=== PATIENT | male | born 1970 | race Caucasian/White ===

== ENCOUNTER 2018-05-06 06:37 | Emergency (ER) | payer OTHER ==
--- NOTE | 2018-05-06 08:08 | RAD REPORT ---
EXAM DESCRIPTION: CT - Head Brain Wo Cont - 05/06/2018 7:35 am CLINICAL HISTORY: Headache COMPARISON: None. TECHNIQUE: Computed axial tomography of the head was obtained. IV contrast was not requested. All CT scans are performed using dose optimization technique as appropriate and may include automated exposure control or mA/KV adjustment according to patient size. FINDINGS: An intracranial bleed is not seen . The ventricles are normal in caliber. No extra-axial fluid collection is noted. Fluid within the sinuses/ mastoids is not seen. IMPRESSION: No acute intracranial abnormality is seen. If patient's symptoms persist MRI of the bra in would be recommended.
[2018-05-06 08:16] LABS: Absolute Lymphocytes (CBC) 1.2 K/uL (0.7-4.9); Absolute Monocytes 0.4 K/uL (0.1-1.3); Absolute Neutrophil 3.9 K/uL (1.8-8.0); Basophils % 0.6 % (0-1.3); Eosinophils % 2.6 % (0-4.4); Hematocrit 43.3 % (39.6-49.0); Lymphocytes % 21.2 % (15.3-44.8); MCH 32.9 pg (27.0-35.0); MCV 96.6 fL (80-100); MPV 8.7 fL (7.6-11.3); Monocytes % 7.1 % (3.3-12.3); RBC Red Blood Cell Count 4.48 M/uL (4.33-5.43)
[2018-05-06 08:18] LABS: Protime INR 1.27
[2018-05-06 08:36] LABS: ALT/SGPT 62 U/L (12-78); AST/SGOT 122 U/L (15-37); Albumin 3.5 g/dL (3.4-5.0); Alkaline Phosphatase 170 U/L (45-117); BUN Blood Urea Nitrogen 10 mg/dL (7-18); Bicarbonate 26 mmol/L (21-32); Bilirubin Direct 0.5 mg/dL (0-0.2); Bilirubin Total 1.3 mg/dL (0.2-1.0); Glucose Level 132 mg/dL (74-106); NT PRO-BNP 70 pg/mL (<125); Potassium 3.7 mmol/L (3.5-5.1); Protein, Total 8.6 g/dL (6.4-8.2); Sodium Level 136 mmol/L (136-145); Troponin (Emerg Dept Use Only) < 0.02 ng/mL (0.0-0.045)
[2018-05-06 08:46] LABS: Blood Morphology Comment NOT SEEN (NOT SEEN); Platelet Estimate ADEQ
[2018-05-06] MEDS ORDERED: NA CHLORIDE 0.9% 1,000 ML ONE (09:02)
[2018-05-06] MEDS ORDERED: LISINOPRIL 20 MG TAB ONE (09:02)
--- NOTE | 2018-05-06 10:44 | ER ---
Nurse's Notes [facility] Name: Joel Rondon Age: 48 yrs Sex: Male : 1970 Arrival Date: 05/06/2018 Time: 06:46 Bed 16 Private MD: Diagnosis: Hypertensive heart disease Presentation: 05/06 07:08 Presenting complaint: Patient states: high BP at work yesterday 191/110, has not gone iw back down, hx of hypertension but off meds for 4 years, c/o headache, dizziness, feet tingling. Transition of care: patient was not received from another setting of care. Onset of symptoms was May 05, 2018. Risk Assessment: Do you want to hurt yourself or someone else? Patient reports no desire to harm self or others. Initial Sepsis Screen: Does the patient meet any 2 criteria? No. Patient's initial sepsis screen is negative. Does the patient have a suspected source of infection? No. Patient's initial sepsis screen is negative. Care prior to arrival: None. 07:08 Method Of Arrival: Ambulatory iw 07:08 Acuity: [place] 3 iw Historical: - Allergies: 07:11 Celebrex; iw - Home Meds: 07:11 None [Active]; iw - PMHx: 07:11 Hypertension; iw - PSHx: 07:11 left knee; shoulder; iw - Immunization history:: Adult Immunizations up to date. - Social history:: Smoking status: Patient/guardian denies using tobacco. - Ebola Screening: : Patient negative for fever greater than or equal to 101.5 degrees Fahrenheit, and additional compatible Ebola Virus Disease symptoms Patient denies exposure to infectious person Patient denies travel to an Ebola-affected area in the 21 days before illness onset No symptoms or risks identified at this time. Screenin:10 Abuse screen: Denies threats or abuse. Denies injuries from another. Nutritional jl7 screening: No deficits noted. Tuberculosis screening: No symptoms or risk factors identified. Fall Risk IV access (20 points). Total Morton Fall Scale indicates No Risk (0-24 pts). Assessment: 08:10 General: Appears in no apparent distress. uncomfortable, Behavior is calm, cooperative, jl7 appropriate for age. Pain: Complains of pain in headache. Neuro: Level of Consciousness is awake, alert, obeys commands, Oriented to person, place, time, situation. Cardiovascular: Heart tones present Patient's skin is warm and dry. Respiratory: Airway is patent Respiratory effort is even, unlabored, Respiratory pattern is regular, symmetrical. Derm: Skin is pink, warm \T\ dry. 09:01 Reassessment: Patient appears in no apparent distress at this time. No changes from jl7 previously documented assessment. Patient and/or family updated on plan of care and expected duration. Pain level reassessed. Patient is alert, oriented x 3, equal unlabored respirations, skin warm/dry/pink. 10:00 Reassessment: Patient appears in no apparent distress at this time. Patient and/or jl7 family updated on plan of care and expected duration. Pain level reassessed. Patient is alert, oriented x 3, equal unlabored respirations, skin warm/dry/pink. Vital Signs: 07:11 BP 174 / 120; Pulse 81; Resp 16; Temp 98.2; Pulse Ox 98% on R/A; Weight 89.81 kg; iw Height 5 ft. 5 in. (165.10 cm); Pain 6/10; 08:10 BP 162 / 106; Pulse 77; Resp 16 S; Pulse Ox 100% on R/A; Pain 0/10; jl7 09:01 BP 164 / 113; Pulse 84; Resp 16 S; Pulse Ox 98% on R/A; Pain 2/10; jl7 11:11 BP 160 / 107; Pulse 85; Resp 16 S; Pulse Ox 100% on R/A; Pain 0/10; jl7 07:11 Body Mass Index 32.95 (89.81 kg, 165.10 cm) iw ED Course: 06:46 Patient arrived in ED. ds1 07:10 Triage completed. iw 07:11 Arm band placed on. iw 07:13 Gorge Angela PA is PHCP. cp 07:13 Anam Reyes MD is Attending Physician. cp 07:16 Gorge Ritter MD is Attending Physician. cp 07:34 CT completed. Patient tolerated procedure well. Patient moved to CT via wheelchair. jg6 Patient moved back from CT. 07:36 CT Head Brain wo Cont In Process Unspecified. EDMS 07:48 XRAY Chest (1 view) In Process Unspecified. EDMS 08:05 EKG done, by senior engineering tech. reviewed by Gorge WALLS. at1 08:10 Gabriella Levi, RN is Primary Nurse. jl7 08:10 Patient has correct armband on for positive identification. Bed in low position. Call jl7 light in reach. Side rails up X 1. hall monitor on. Pulse ox on. NIBP on. Warm blanket given. 08:10 Initial lab(s) drawn, by me, sent to lab. Inserted saline lock: 20 gauge in left jl7 antecubital area, using aseptic technique. Blood collected. 09:21 US Abdomen Limited In Process Unspecified. EDMS 09:47 Ultrasound completed. Patient tolerated well. Note: US DONE BEDSIDE IN ER. lc3 11:11 No provider procedures requiring assistance completed. IV discontinued, intact, jl7 bleeding controlled, No redness/swelling at site. Pressure dressing applied. Administered Medications: 09:00 Drug: NS 0.9% 1000 ml Route: IV; Rate: 1 bolus; Site: left antecubital; jl7 10:00 Follow up: IV Status: Completed infusion jl7 09:00 Drug: Lisinopril 20 mg Route: PO; jl7 11:11 Follow up: Response: No adverse reaction jl7 Outcome: 10:43 Discharge ordered by MD. cp 11:11 Discharged to home ambulatory. jl7 11:11 Condition: stable 11:11 Discharge instructions given to patient, family, Instructed on discharge instructions, follow up and referral plans. medication usage, Demonstrated understanding of instructions, follow-up care, medications, Prescriptions given X 1. 11:13 Patient left the ED. jl7 Signatures: Dispatcher [employer] EDGA Isa Kennedy ds1 Eleonora Mina, RN RN Sweta Hernandez, food service attendant EKG Tat1 Gorge Angela PA PA cp Baudilio Marie [facility] Gabriella Levi, RN RN juan7 Hortensia Figueroa j6
--- NOTE | 2018-05-06 10:45 | EDPHYS ---
Physician Documentation [facility] Name: Joel Rondon Age: 48 yrs Sex: Male : 1970 Arrival Date: 05/06/2018 Time: 06:46 Bed 16 Private MD: ED Physician Gorge Ritter HPI: 05/06 07:30 This 48 yrs old Male presents to ER via Ambulatory with complaints of High cp Blood Pressure. 07:30 The patient has elevated blood pressure and discovered this at work yesterday. cp 07:30 Associated signs and symptoms: Pertinent positives: dizziness, headache, tingling in cp feet, Pertinent negatives: chest pain, dyspnea, visual changes, vomiting. Severity of symptoms: At its worst the blood pressure was 191 mm Hg. Patient reports PMHX of hypertension and stopping medications with f/u four years ago. Historical: - Allergies: 07:11 Celebrex; iw - Home Meds: 07:11 None [Active]; iw - PMHx: 07:11 Hypertension; iw - PSHx: 07:11 left knee; shoulder; iw - Immunization history:: Adult Immunizations up to date. - Social history:: Smoking status: Patient/guardian denies using tobacco. - Ebola Screening: : Patient negative for fever greater than or equal to 101.5 degrees Fahrenheit, and additional compatible Ebola Virus Disease symptoms Patient denies exposure to infectious person Patient denies travel to an Ebola-affected area in the 21 days before illness onset No symptoms or risks identified at this time. ROS: 07:35 Constitutional: Negative for body aches, chills, fever, poor PO intake. cp 07:35 Eyes: Negative for injury, pain, redness, and discharge. cp 07:35 ENT: Negative for drainage from ear(s), ear pain, sore throat, difficulty swallowing, difficulty handling secretions. 07:35 Cardiovascular: Negative for chest pain, edema, palpitations. 07:35 Respiratory: Negative for cough, shortness of breath, wheezing. 07:35 Abdomen/GI: Negative for abdominal pain, nausea, vomiting, and diarrhea, black/tarry stool, rectal bleeding. 07:35 Back: Negative for pain at rest, pain with movement, radiated pain. 07:35 Skin: Negative for cellulitis, rash. 07:35 Neuro: Positive for headache, Negative for altered mental status, dizziness, numbness, tingling, weakness. 07:35 All other systems are negative. Exam: 07:43 Constitutional: The patient appears in no acute distress, alert, awake, cp non-diaphoretic, well developed, well nourished. 07:43 Head/Face: Normocephalic, atraumatic. Eyes: Pupils equal round and reactive to light, cp extra-ocular motions intact. Lids and lashes normal. Conjunctiva and sclera are non-icteric and not injected. Cornea within normal limits. Periorbital areas with no swelling, redness, or edema. ENT: Nares patent. No nasal discharge, no septal abnormalities noted. Tympanic membranes are normal and external auditory canals are clear. Oropharynx with no redness, swelling, or masses, exudates, or evidence of obstruction, uvula midline. Mucous membranes moist. Neck: Trachea midline, no thyromegaly or masses palpated, and no cervical lymphadenopathy. Supple, full range of motion without nuchal rigidity, or vertebral point tenderness. No Meningismus. Chest/axilla: Normal chest wall appearance and motion. Nontender with no deformity. No lesions are appreciated. 07:43 Cardiovascular: Rate: normal, Rhythm: regular, Pulses: Pulses are 2+ in right radial artery and left radial artery. Heart sounds: murmur, not appreciated, Edema: is not appreciated, JVD: is not appreciated. 07:43 Respiratory: the patient does not display signs of respiratory distress, Respirations: normal, no use of accessory muscles, no retractions, no splinting, no tachypnea, labored breathing, is not present, Breath sounds: are clear throughout, no decreased breath sounds, no stridor, no wheezing. 07:43 Abdomen/GI: Inspection: abdomen appears normal, Bowel sounds: active, all quadrants, Palpation: abdomen is soft and non-tender, in all quadrants. 07:43 Back: pain, is absent, ROM is normal. 07:43 Skin: cellulitis, is not appreciated, no rash present. 07:43 Neuro: Orientation: to person, place \T\ time. Mentation: is normal, Cerebellar function: is grossly normal, Motor: moves all fours, strength is normal, Sensation: is normal, Gait: is steady, at a normal pace, without difficulty. 08:05 ECG was reviewed by the Attending Physician. cp Vital Signs: 07:11 BP 174 / 120; Pulse 81; Resp 16; Temp 98.2; Pulse Ox 98% on R/A; Weight 89.81 kg; iw Height 5 ft. 5 in. (165.10 cm); Pain 6/10; 08:10 BP 162 / 106; Pulse 77; Resp 16 S; Pulse Ox 100% on R/A; Pain 0/10; jl7 09:01 BP 164 / 113; Pulse 84; Resp 16 S; Pulse Ox 98% on R/A; Pain 2/10; jl7 11:11 BP 160 / 107; Pulse 85; Resp 16 S; Pulse Ox 100% on R/A; Pain 0/10; jl7 07:11 Body Mass Index 32.95 (89.81 kg, 165.10 cm) iw MDM: 07:13 Patient medically screened. cp 07:30 Differential diagnosis: hypertensive crisis, Malignant HTN, CVA, intracerebral cp hemorrhage. 10:40 Data reviewed: vital signs, nurses notes, lab test result(s), EKG, radiologic studies, cp CT scan, ultrasound. 10:40 Counseling: I had a detailed discussion with the patient and/or guardian regarding: the cp historical points, exam findings, and any diagnostic results supporting the discharge/admit diagnosis, the presence of at least one elevated blood pressure reading (>120/80) during this emergency department visit, lab results, radiology results, the need for outpatient follow up, for definitive care, a family practitioner, to return to the emergency department if symptoms worsen or persist or if there are any questions or concerns that arise at home. Response to treatment: the patient's symptoms have mildly improved after treatment. ED course: VSS. Blood pressure improved. Discussed results of labs with abnormal LFTs and US. Patient instructed on need for reducing alcohol use and to f/u with family physician. 05/06 07:23 Order name: Basic Metabolic Panel; Complete Time: 08:43 cp 05/06 08:44 Interpretation: Normal except: GLUC 132; CA 8.4. cp 05/06 07:23 Order name: CBC with Diff; Complete Time: 09:27 cp 05/06 08:43 Interpretation: Normal except: PLT 85. cp 05/06 07:23 Order name: LFT's; Complete Time: 08:43 05/06 08:44 Interpretation: Normal except: AST 122; ALK 170; BILIT 1.3; BILID 0.5; TP 8.6; GLOB cp 5.1; A/G 0.7. 05/06 07:23 Order name: Magnesium; Complete Time: 08:43 05/06 07:23 Order name: NT PRO-BNP; Complete Time: 08:43 05/06 07:23 Order name: PT-INR; Complete Time: 08:43 05/06 07:23 Order name: Troponin (emerg Dept Use Only); Complete Time: 08:43 05/06 07:23 Order name: XRAY Chest (1 view) 05/06 07:23 Order name: EKG; Complete Time: 07:24 05/06 07:23 Order name: CT Head Brain wo Cont; Complete Time: 08:24 05/06 08:25 Interpretation: Report reviewed. 05/06 08:45 Order name: US Abdomen Limited 05/06 08:46 Order name: Manual Differential; Complete Time: 09:27 EDMS 05/06 07:23 Order name: Cardiac monitoring; Complete Time: 08:17 05/06 07:23 Order name: EKG - Nurse/Tech; Complete Time: 08:17 05/06 07:23 Order name: IV Saline Lock; Complete Time: 08:17 05/06 07:23 Order name: Labs collected and sent; Complete Time: 08:17 05/06 07:23 Order name: O2 Per Protocol; Complete Time: 08:17 05/06 07:23 Order name: O2 Sat Monitoring; Complete Time: 08:17 05/06 07:23 Order name: Accucheck Blood Glucose; Complete Time: 08:52 cp EC:05 Rate is 81 beats/min. Rhythm is regular. SD interval is normal. QRS interval is cp prolonged at 102 msec. QT interval is normal. Interpreted by me. Reviewed by me. Administered Medications: 09:00 Drug: NS 0.9% 1000 ml Route: IV; Rate: 1 bolus; Site: left antecubital; 10:00 Follow up: IV Status: Completed infusion 7 09:00 Drug: Lisinopril 20 mg Route: PO; 11:11 Follow up: Response: No adverse reaction Disposition: 16:57 Co-signature as Attending Physician, Gorge Ritter MD I agree with the assessment and tony plan of care. Disposition: 05/06/18 10:43 Discharged to Home. Impression: Hypertensive heart disease. - Condition is Stable. - Discharge Instructions: Hypertension, How to Take Your Blood Pressure, [id number], Managing Your Hypertension. - Prescriptions for Lisinopril 20 mg Oral Tablet - take 1 tablet by ORAL route once daily; 20 tablet. - Medication Reconciliation Form, Thank You Letter, Antibiotic Education, Prescription Opioid Use form. - Follow up: Private Physician; When: Today; Reason: Recheck today's complaints. - Problem is new. - Symptoms have improved. Signatures: Dispatcher [employer] EDGorge Coburn MD MD cha Williams, Irene, RN RN Gorge Patrick PA PA cp Leal, Jahala, RN RN jl7 Corrections: (The following items were deleted from the chart) 08:44 08:43 Normal except: GLUC 132. cp cp 11:13 10:43 05/06/2018 10:43 Discharged to Home. Impression: Hypertensive heart disease. jl7 Condition is Stable. Forms are Medication Reconciliation Form, Thank You Letter, Antibiotic Education, Prescription Opioid Use. Follow up: Private Physician; When: Today; Reason: Recheck today's complaints. Problem is new. Symptoms have improved. cp 05/07 08:33 05/05 07:42 Constitutional: The patient appears in no acute distress, alert, awake, cp non-diaphoretic, non-toxic, well developed, well nourished, cp 05/07 08:33 05/05 07:42 Head/Face: Normocephalic, atraumatic. Eyes: Pupils equal round and reactive cp to light, extra-ocular motions intact. Lids and lashes normal. Conjunctiva and sclera are non-icteric and not injected. Cornea within normal limits. Periorbital areas with no swelling, redness, or edema. ENT: Nares patent. No nasal discharge, no septal abnormalities noted. Tympanic membranes are normal and external auditory canals are clear. Oropharynx with no redness, swelling, or masses, exudates, or evidence of obstruction, uvula midline. Mucous membranes moist. Neck: Trachea midline, no thyromegaly or masses palpated, and no cervical lymphadenopathy. Supple, full range of motion without nuchal rigidity, or vertebral point tenderness. No Meningismus. Chest/axilla: Normal chest wall appearance and motion. Nontender with no deformity. No lesions are appreciated. Cardiovascular: Regular rate and rhythm with a normal S1 and S2. No gallops, murmurs, or rubs. Normal PMI, no JVD. No pulse deficits. Respiratory: Lungs have equal breath sounds bilaterally, clear to auscultation and percussion. No rales, rhonchi or wheezes noted. No increased work of breathing, no retractions or nasal flaring. Abdomen/GI: Soft, non-tender, with normal bowel sounds. No distension or tympany. No guarding or rebound. No evidence of tenderness throughout. Skin: Warm, dry with normal turgor. Normal color with no rashes, no lesions, and no evidence of cellulitis. Neuro: Awake and alert, GCS 15, oriented to person, place, time, and situation. Cranial nerves II-XII grossly intact. Motor strength 5/5 in all extremities. Sensory grossly intact. Cerebellar exam normal. Normal gait. cp 05/07 08:33 05/06 07:30 The patient has elevated blood pressure and discovered this at home, with a cp home device, cp
--- NOTE | 2018-05-06 11:46 | EKG ---
Test Date: 2018-05-06 Test Time: 07:54:38 [employer]: JAVY MEASUREMENT RESULTS: Intervals: Rate: 81 MS: 142 QRSD: 102 QT: 414 QTc: 480 [place]: P: 30 MS: 142 QRS: -13 T: -2 INTERPRETIVE STATEMENTS: Normal sinus rhythm Minimal voltage criteria for LVH, may be normal variant Prolonged QT Abnormal ECG No previous ECG available for comparison Electronically Signed On 05-06-18 11:44:40 [employer] OFFIC[employer] by Inocencio Uriarte
--- NOTE | 2018-05-06 13:12 | RAD REPORT ---
EXAM DESCRIPTION: RAD - Chest Single View - 05/06/2018 7:48 am CLINICAL HISTORY: Hypertension, headache, shortness of breath COMPARISON: None. TECHNIQUE: AP portable chest image was obtained 0731 hours . FINDINGS: Lung volumes are low. No focal lung parenchymal process. Heart and vasculature are normal. No measurable pleural effusion and no pneumothorax. No acute bony abnormality seen. No acute aortic findings suspected. IMPRESSION: No acute cardiopulmonary process.
--- NOTE | 2018-05-06 14:15 | RAD REPORT ---
EXAM DESCRIPTION: US - Abdomen Exam Limited - 05/06/2018 9:23 am CLINICAL HISTORY: Abdominal pain./elevated liver enzymes COMPARISON: None. FINDINGS: The liver has an increase in heterogeneous echotexture. It may have a nodular contour. A gallstone is not seen. Gallbladder wall is not thickened. Biliary tree is normal caliber. IMPRESSION: Unremarkable gallbladder ultrasound. Heterogeneous and increased hepatic echotexture consistent with parenchymal disease. CT scan or MRI w ith contrast is recommended for further evaluation
== END 2018-05-06 11:13 | disposition home or self-care (01) ==
LOC: ER 06:37
DX: I11.9 Hypertensive heart disease without heart failure (principal); Z88.8 Allergy status to other drugs, medicaments and biological substances
CPT/HCPCS: 36415; 70450; 71045; 76705; 80048; 80076; 83735; 83880; 84484; 85025; 85610; 93005; 96360; 99285; J7030

== ENCOUNTER 2020-11-04 01:51 | Emergency (ER) | payer BC, SELFPAY ==
[2020-11-04] MEDS ORDERED: EPINEPHrine 1 MG/10 ML SYR IV ONE (01:52)
[2020-11-04] MEDS ORDERED: NA CHLORIDE 0.9% 1,000 ML IV ONE (01:52)
[2020-11-04] MEDS ORDERED: Caclcium Chloride 10% INJ SYR IV ONE (01:52)
--- OUTSIDE RECORDS SUMMARY | 2020-11-04 01:55 | XMS REPORT | Continuity of Care Document ---
:1970 Author Organization [facility] t Address [address] [place] [address] Care Team Providers Name Role Phone Ignacio MINER Primary Care Physician Tereza ROB M Attending Clinician [facility] Attending Clinician Unavailable Mayo MINER G Attending Clinician Jose YANEZ Admitting Clinician Payers Payer Name Policy Type Policy Effective Date Expiration Date Sour ce Number BCBS OF [id number] 2020 [place] o f [place] 00:[place]:00 [facility] [id number] Branch [id number] 2019 [id number], [place] [id number] Problems Condition Condition Condition Status Onset Resolution Last Treating Co mments Source Name Details Category Date Date Treatment Clinician Date S/P S/P Disease Active Overview: Univer s choledocho choledocho 5-06 Added it y of choledocho choledocho 00:00: automatic [place] stomy with stomy with 00 ally from Medical stent done stent done request B ranch at time of at time of for liver liver surgery transplant transplant [id number] Fever in Fever in Disease Active Unive rs adult adult 4-22 ity of 00:00: [address] Branch Immunosupp Immunosupp Disease Active U nivers ressed ressed 4-15 ity of status status 00:00: [address] Branch 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 4-15 it y of on on 00:00: [place] [address] Medical Branch Essential Essential Disease Active Uni vers hypertensi hypertensi 4-10 it y of on on 00:00: Medical Branch Hyponatrem Hyponatrem Disease Active U ariellaers ia ia 4-10 ity of 00:00: Medical Branch 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 4-10 it y of 00:: [place] [facility] Coagulopat Coagulopat Disease Active U adam hy hy 4-10 ity of 00:00: [place] [facility] Obesity Obesity Disease Active Univers (BMI (BMI 3-22 ity of 30-39.9) 30-39.9) 00:00: [place] [facility] Branch Decompensa Decompensa Disease Active U ariellaers cornelio cornelio 3-22 ity of hepatic hepatic 00:00: [place] cirrhosis cirrhosis [address] [place] [address] Liver Liver Disease Active Overview: Univer s transplant transplant 3-21 Added it y of ed ed 00:00: automatic [place] 00 ally from Medical request Branch for surgery [id number] Pain, Pain, Diagnosis Active [facility] right right [facility] Primary Primary Diagnosis Active [facility] osteoarthr osteoarthr [place] [facility] - itis of itis of [facility]oria right knee right knee l Outpati ent Clinics Allergies, Adverse Reactions, Alerts Allergy Allergy Status Severity Reaction(s) Onset Inactive Treating Comm ents Source Name Type Date Date Clinician Celebrex Adverse Active Info Not [facility] Reaction Available [facility] Social History Social Habit Start Date Stop Date Quantity Comments Source Exposure to Not sure [facility] SARS-CoV-2 [facility] (event) [place] Tobacco use and 2020-09-21 2020-09-21 Never used Universit y of exposure 00:00:00 00:00:[address] [facility] Alcohol intake 2020-09-21 2020-09-21 Current drinker Unive rsity of 00:00:00 00:00:00 of alcohol [facility] (finding) [place] Sex Assigned At [birth year] Universit y of 00:00:00 00:00:[address] [facility] Smoking Status Start Date Stop Date Source Never smoker [facility] [place] [facility] Medications Ordered Filled Start Stop Current Ordering Indication Dosage Frequency Signature Comments Components Source Medication Medication Date Date Medication? Clinician (SIG) Name Name tacrolimus Yes Liver 6mg Take 6 Univ ers 1 mg 5-03 transplante capsules ity of capsule 00:00: d by mouth [place] 00 every 12 Medical (twelve) Branch hours. ursodioL Yes Liver 600mg Take 2 Unive rs (ACTIGALL) 5-03 transplante capsules ity of 300 mg 00:00: d by mouth 3 [place] capsule 00 (three) Medical times Branch daily. levoFLOXaci Yes Fever, 500mg Take 1 U nivers n 4-24 unspecified tablet by ity of (LEVAQUIN) 00:00: fever cause mouth [place] 500 mg 00 every 24 Medical tablet (twenty-fo Branch ur) hours. traMADoL 50 Yes acute pain 50mg Take 1 Univers mg tablet 4-20 tablet by ity o f 00:00: mouth [place] 00 every 6 Medical (six) Branch hours as needed for Pain (scale 7-10). Indication s: acute pain KCL 20 mEq Yes Immunosuppr 40meq Take 2 Univers tablet 4-20 essed tablets by ity of 00:00: status mouth [place] 00 daily. Medical Branch magnesium Yes Immunosuppr 400mg Take 1 Univers oxide 400 4-20 essed tablet by ity of mg (241.3 00:00: status mouth 2 [place] as mg 00 (two) Medical magnesium) times Branch tablet daily. mycophenola Yes Liver 540mg Take 3 Un eduar te sodium 4-13 transplante tablets by ity of (MYFORTIC) 00:00: d mouth [place] 180 mg EC 00 (two) Medical tablet times Branch daily. sulfamethox Yes Liver 1{tbl} Take 1 U nivers azole-trime 4-13 transplante tablet by ity of thoprim 00:00: d mouth [place] 400-80 mg 00 daily. Or Medic al per tablet as Branch instructed . valGANciclo Yes Liver 450mg Take 1 Un eduar vir 450 mg 4-13 transplante tablet by ity of tablet 00:00: d mouth [place] 00 daily. Or Medical as Branch instructed . predniSONE Yes Liver 20mg Take 1 Univ ers 20 mg 4-13 transplante tablet by it y of tablet 00:00: d mouth [place] 00 daily. Medical Take as Branch directed. Yes Liver 1{tbl} Take 1 Univ ers vitamin 4-13 transplante tablet by ity of w/FA tablet 00:00: d mouth [place] 00 every day Medical at 1200 Branch (noon). pantoprazol Yes Liver 40mg Take 1 Uni vers e 40 mg EC 4-13 transplante tablet by ity of tablet 00:00: d mouth [place] 00 daily. Medical Branch sennosides- Yes Liver 1{tbl} Take 1 U nivers docusate 4-13 transplante tablet by ity of sodium 00:00: d mouth [place] 8.6-50 mg 00 daily. Medical per tablet Branch Loratadine Loratadine Yes Ubaldo not [facility] Lisinopril Lisinopril Yes Ubaldo not [facility] Zolpidem Zolpidem Yes Ubaldo not [facility] Tartrate Tartrate [facility] defined [facility] Naproxen Naproxen Yes Ubaldo not [facility] Sodium Sodium [place] defined [facility] Immunizations Ordered Filled Immunization Date Status Comments Sour e Immunization Name Name SARS-COV-2 COVID-19 2020-09-05 Completed Unive rsity of PFIZER VACCINE 00:00:00 [facility] [place] [facility] jesus Branch Procedures Procedure Date / Time Performed Performing Clinician Ashok e US ARTERIAL IN AND 2020-10-12 15:25:49 Pippa Huber Univer sity of [place] VENOUS OUT ABDOMEN [facility] COMPLETE DOPPLER Plan of Care Planned Activity Planned Date Details Comments Source Future Scheduled 2021-10-09 Depression screening Uni versity of Test 00:00:00 (procedure) [code = [facility] dical [id number]] Branch Future Scheduled 2021-02-07 INFLUENZA VACCINE Univer sity of Test 00:00:00 (Season Ended) [code = [place] [facility] INFLUENZA VACCINE Branch (Season Ended)] Future Scheduled 2020-09-26 SARS-CoV-2 (COVID-19) Un iversity of Test 00:00:00 Vaccine (2 - Pfizer [place] Me dical 2-dose series) [code = Branc h SARS-CoV-2 (COVID-19) Vaccine (2 - Pfizer 2-dose series)] Future Scheduled 2018 Screening for occult Uni versity of Test 00:00:00 blood in feces [facility] (procedure) [code = Branch [id number]] Future Scheduled 2018 Stool DNA-based Universi ty of Test 00:00:00 colorectal cancer [facility] screening (procedure) Branch [code = 669669330650335] Future Scheduled 2018 Flexible fiberoptic Univ ersity of Test 00:00:00 sigmoidoscopy [facility] (procedure) [code = Branch [id number]] Future Scheduled 2018 Screening for University of Test 00:00:00 malignant neoplasm of [facility] colon (procedure) Branch [code = 533866560] Future Scheduled 2018 Screening for University of Test 00:00:00 malignant neoplasm of [facility] colon (procedure) Branch [code = 577466088] Future Scheduled 2018 Zoster Recombinant Unive rsity of Test 00:00:00 Vaccine (SHINGRIX) (1 [place] [facility] of 2) [code = Zoster Branch Recombinant Vaccine (SHINGRIX) (1 of 2)] Future Scheduled 1987 DTaP,Tdap,and Td Univers ity of Test 00:00:00 Vaccines (1 - Tdap) [facility] dical [code = DTaP,Tdap,and Branch Td Vaccines (1 - Tdap)] Future Scheduled 1974 PNEUMOCOCCAL 0-64 Univer sity of Test 00:00:00 YEARS COMBINED SERIES [facility] (1 of 3 - PCV13) [code Branc h = PNEUMOCOCCAL 0-64 YEARS COMBINED SERIES (1 of 3 - PCV13)] Future Appointment 2020-11-09 Maria Garcia MD, U niversity of 13:00:[address] [place] [id number] Branch Future Appointment 2020-11-09 Maria Garcia MD, U niversity of 13:00:[address] [place] [address] Branch Encounters Start End Encounter Admission Attending Care Care Encounter Source Date/Time Date/Time Type Type Clinicians Facility Department ID 2020-11-03 2020-11-03 Transition Navarro Starks [id number] 00:00:00 00:00:00 of Care Brandi Malone [id number] [place] [id number] 2020-10-26 2020-10-26 Credit Collections Rep [facility] UNIVERSIT [id number] 10:46:32 10:55:07 Visit [facility] [id number] [facility] [id number] 2018-08-04 2018-08-04 [facility] [id number] 08:30:00 08:30:00 [facility] ent Clinics Results Test Description Test Time Test Comments Results Result [facility] e Comments US ARTERIAL IN 1. Patent Universit y of AND VENOUS OUT 6 [place] ABDOMEN COMPLETE 22:00:01 vasculature. Branch DOPPLER Decreased resistive index ofcommon hepatic artery which partly technical. A short-term follow-up isrecommended. 2. Biliary stent in place. Gradually increased intrahepatic biliary ductaland CBD dilatation. 3. Stable to slightly increased small perihepatic collection measuring 3.8x 3.0 x 3.0 cm. Preliminary Report Dictated by Resident: Filemon Roldan I, Waldemar Gastelum MD., have reviewed this study and agree with theabove report.[facility], Radiant Results Inft User - 10/12/2020 5:01 PM CDTEXAM: US ARTERIAL IN AND VENOUS OUT ABDOMEN COMPLETE DOPPLERHISTORY: 50 years -old Male with EtOH Cirrhosis c/b HCC s/p LiverTransplant and choledo-chocholedocho stomy with stent placement on09/18/2020, elevated LFTsTECHNIQUE: Survey ultrasound imaging of the limited abdomen as well as thehepatic vasculature was performed including color and spectral Dopplerevaluation with admissions representative images obtained.COMPARISON: Post transplant liver ultrasound, 10/01/2020FINDINGS:Sta tements: PSV = Peak systolic velocity, RI = Resistive index, SAT =Systolic acceleration time.Vasculature: Proximal aorta diameter: 2.5 cmHepatic arteries: Patent, normal waveform. Common hepatic artery PSV: 89.1 cm/s, RI of 0.4, previously RI 0.63 Hepatic veins: Patent, normal waveform. Flow towards heart.Portal veins: Patent, hepatopetal flow (towards liver).Main portal vein velocity measures 41.5 cm. At recipient, 100 cm cm/secondat the anastomosis and 66.1 cm/s at the donor site.Liver: Right hepatic lobe length: 18.4 cm , previously 16.4 cm, likely due tointeroperator variability. Morphology/Parenchyma /Contour: Visualized parenchyma is unremarkable.Dedicate d images of the left hepatic lobe were not obtained. Focal lesion: The small perihepatic collection along the posterior righthepatic margin, measures 3.8 x 3 x 3 cm stable to slightly increased. Nofocal parenchymal abnormality. Biliary ducts: Common duct measures 0.8 cm in diameter at the portahepatis. A biliary stent is noted at the alexa hepatis that appears to bein the biliary system. Mild intrahepatic ductal dilatation. Gallbladder: Absent.IMPRESSION1. Patent transplant hepatic vasculature. Decreased resistive index ofcommon hepatic artery which partly technical. A short-term follow-up isrecommended.2. Biliary stent in place. Gradually increased intrahepatic biliary ductaland CBD dilatation.3. Stable to slightly increased small perihepatic collection measuring 3.8x 3.0 x 3.0 cm.Preliminary Report Dictated by Resident: Filemon Mac, Waldemar Gastelum MD., have reviewed this study and agree with theabove report.
--- NOTE | 2020-11-04 03:29 | ER ---
Nurse's Notes [facility] Name: Joel Rondon Age: 50 yrs Sex: Male : 1970 Arrival Date: 11/04/2020 Time: 02:07 Bed 2 Private MD: Diagnosis: Cardiac arrest Presentation: 11/04 01:47 Chief complaint: EMS states: Pt presents to ED via EMS from home for c/o syncopal ad5 episode bar captain after eating dinner. Recent liver transplant. Care prior to arrival: O2 via NRB; 18g dual lumen IV to R forearm; 22g IV to L hand. Compressions began at 01:48. 01:47 Method Of Arrival: EMS: [facility] ad5 01:47 Acuity: [place] 1 ad5 02:30 Coronavirus screen: unable to obtain information regarding Covid s/s or travel. Ebola ad5 Screen: Unable to complete the Ebola screening because: TOD at 0202. 02:30 Risk Assessment: Do you want to hurt yourself or someone else? Unable to obtain. ad5 Triage Assessment: 01:47 General: Appears pt unresponsive, pale/cool. ad5 - Unable to obtain history due to: unresponsive. Screenin:30 Abuse screen: unable to obtain information. Nutritional screening: unable to obtain ad5 information. Tuberculosis screening: unable to obtain information. Assessment: 01:47 CPR assessment: unresponsive, pupils fixed \T\ dilated, agonal respirations, no ad5 respiratory effort, pale. Cardiac rhythm is PEA. General: Behavior is unresponsive. Neuro: Level of Consciousness is unresponsive, Oriented to none Pupils are fixed, dilated. EENT: Cardiovascular: Heart tones absent Capillary refill is > 3 seconds JVD is absent Pulses are absent in right radial artery, right femoral artery, right dorsalis pedis artery, left radial artery, left femoral artery, left dorsalis pedis artery, left carotid pulse and right carotid pulse Rhythm is PEA. Respiratory: Airway NRB in place by EMS bar captain to ED Breath sounds are absent bilaterally. GI: Abdomen is distended, bruised on left upper quadrant and left lower quadrant drain noted to RUQ with ajit across epigastric and RUQ areas, appear well-healing. Derm: Skin is dry, Skin is pale, Skin temperature is cool. 02:02 Reassessment: See code sheet charting for additional nursing notes/charting regarding ad5 pt care. 05:06 Reassessment: [employer] at bedside for pt information, Automobile Service Station Mechanic notified by PD, awaiting ad5 further assessments/orders regarding pt disposition to home. 05:30 Reassessment: drivers license examiner at bedside with PD, speaking with family. Awaiting diving judge ad5 at this time. 06:30 Reassessment: Pit Furnace Melter at bedside with ME and PD. Forms for certificate completed. ad5 Pt to transport to [facility], awaiting transport to [facility]. Update provided to organ donation service. Vital Signs: 02:00 Pulse 0; Resp 0; Temp 99.2(R); rr5 ED Course: 01:48 Maintain EMS IV. Dressing intact. Good blood return noted. Site clean \T\ dry. Gauge \T\ rr 5 site: G18 right AC. 01:48 monitoring and evaluation advisor on. Pulse ox on. rr5 01:56 Intubation: 7.5 Fr. ETT placed orally. Performed by Eriberto Coffman MD Successful on rr5 first attempt. Placement verified by CO2 detector w/ + color change, auscultating bilateral breath sounds, Ventilated with Ambu bag. 01:59 Defibrillated with 150 joules. rr5 02:00 Arm band placed on right wrist. ad5 02:07 Patient arrived in ED. iw 02:09 Eriberto Coffman MD is Attending Physician. [facility] 02:27 Andrea Munoz is Primary Nurse. ad5 02:57 Triage completed. ad5 03:27 Eriberto Coffman MD is Pronouncing Provider. mh7 Administered Medications: 01:48 Drug: EPINEPHrine 0.1mg/mL 1:10,000 1 mg Route: IVP; Site: right antecubital; rr5 01:50 Drug: D50W 50 ml Route: IVP; Site: right antecubital; rr5 01:51 Drug: Sodium Bicarbonate 1 amp Route: IVP; Site: right antecubital; rr5 01:52 Drug: EPINEPHrine 0.1mg/mL 1:10,000 1 mg Route: IVP; Site: right antecubital; rr5 01:55 Drug: EPINEPHrine 0.1mg/mL 1:10,000 1 mg Route: IVP; Site: right antecubital; rr5 01:56 Drug: Calcium Chloride 10% 10 ml Route: IVP; Site: right antecubital; rr5 01:59 Drug: EPINEPHrine 0.1mg/mL 1:10,000 1 mg Route: IVP; Site: right antecubital; rr5 02:00 Drug: Sodium Bicarbonate 1 amp Route: IVP; Site: right antecubital; rr5 Outcome: 02:02 Outcome Patient rr5 02:02 Patient : Time of 02:02 Pronounced by Eriberto Coffman MD 02:02 Condition: 07:03 Patient : Body released to ME ad5 07:04 Patient left the ED. ad5 Signatures: Eleonora Mina RN RN iw Tao Pinto RN RN rr5 Eriberto Coffman MD MD 7 Andrea Munoz ad5 Corrections: (The following items were deleted from the chart) 03:13 03:05 Abuse screen: ad5 ad5
--- NOTE | 2020-11-04 03:29 | EDPHYS ---
Physician Documentation [facility] Name: Joel Rondon Age: 50 yrs Sex: Male : 1970 Arrival Date: 11/04/2020 Time: 02:07 Bed 2 Private MD: ED Physician Eriberto Coffman HPI: 11/04 03:04 This 50 yrs old Male presents to ER via EMS with complaints of Altered Mental mh7 Status. 03:06 Preceding the arrest, the patient collapsed. The arrest occurred at home. Pre-hospital mh7 course: The arrest was witnessed by EMS. Bystanders at the scene did not perform CPR. EMS care prior to arrival: oxygen, Non re breather mask. ACLS details: Initial rhythm was normal sinus rhythm. The presenting rhythm is asystole. Medications given by EMS prior to arrival - none, Defibrillation was not performed, an external pacer was not used. Unable to obtain HPI due to Unresponsive. Per EMS patient collapsed at home which was witnessed by his and was unresponsive. En route to ED he went into asystole. Upon arrival to ED he was still unresponsive and in asystole. ACLS was initiated.. - Unable to obtain history due to: unresponsive. ROS: 03:06 Unable to obtain ROS due to unresponsive. mh7 Exam: 03:06 Head/Face: Normocephalic, atraumatic. mh7 03:06 Neck: Trachea midline, no thyromegaly or masses palpated, and no cervical lymphadenopathy. Supple, full range of motion without nuchal rigidity, or vertebral point tenderness. No Meningismus. 03:06 Chest/axilla: Normal chest wall appearance and motion. Nontender with no deformity. No lesions are appreciated. 03:06 Skin: Warm, dry with normal turgor. Normal color with no rashes, no lesions, and no evidence of cellulitis. 03:06 Constitutional: The patient appears Unresponsive 03:06 Eyes: Periorbital structures: appear normal, Pupils: are fixed and dilated, Extraocular movements: no movement, Conjunctiva: normal, Sclera: no appreciated abnormality. 03:06 ENT: Posterior pharynx: Airway: emesis present with food particles. 03:06 Cardiovascular: Rate: actual rate is 0 bpm, Rhythm: asystole, Pulses: not palpable, Heart sounds: Absent, Edema: is not appreciated, JVD: is not appreciated. 03:06 Respiratory: severe repiratory distress is noted, Respirations: no spontaneous respirations, Breath sounds: equal bilaterally with BVM, Respiratory rate: 0 03:06 Abdomen/GI: Inspection: scar(s), are noted in the right upper quadrant, Bowel sounds: absent, in all quadrants. 03:06 Musculoskeletal/extremity: Extremities: ROM: no movement, no response to any stimuli 03:06 Neuro: Orientation: unable to test, unresponsive, Mentation: unable to test, unresponsive, Memory: unable to test, unresponsive, Cranial nerves: unable to test, unresponsive, Cerebellar function: unable to test, unresponsive, Motor: no movement, Sensation: no response to any stimuli. Vital Signs: 02:00 Pulse 0; Resp 0; Temp 99.2(R); rr5 MDM: 03:21 Differential diagnosis: arrythmia, cardiac arrest, respiratory arrest, overdose, mh7 asphyxiation. Data reviewed: vital signs, nurses notes, EMS record. Response to treatment: There is no appreciated change of the patient's symptoms at this time. ED course: Upon arrival to ED by EMS ACLS initiated for asystole. Patient received multiple doses of Epinephrine and chest compressions with intermediary PEA activity. Also was intubated with 7.5 ETT using MAC 3 laryngoscope successful on first attempt after suctioning copious emesis from oropharynx. Patient also received sodium bicarbonate, calcium chloride, D50 without ROSC. ACLS was discontinued and pronounced at 02:02.. 03:28 Patient medically screened. 7 Administered Medications: 01:48 Drug: EPINEPHrine 0.1mg/mL 1:10,000 1 mg Route: IVP; Site: right antecubital; rr5 01:50 Drug: D50W 50 ml Route: IVP; Site: right antecubital; rr5 01:51 Drug: Sodium Bicarbonate 1 amp Route: IVP; Site: right antecubital; rr5 01:52 Drug: EPINEPHrine 0.1mg/mL 1:10,000 1 mg Route: IVP; Site: right antecubital; rr5 01:55 Drug: EPINEPHrine 0.1mg/mL 1:10,000 1 mg Route: IVP; Site: right antecubital; rr5 01:56 Drug: Calcium Chloride 10% 10 ml Route: IVP; Site: right antecubital; rr5 01:59 Drug: EPINEPHrine 0.1mg/mL 1:10,000 1 mg Route: IVP; Site: right antecubital; rr5 02:00 Drug: Sodium Bicarbonate 1 amp Route: IVP; Site: right antecubital; rr5 Disposition: 03:21 . [facility] Disposition: Patient pronounced on 11/04/20 02:02 by Eriberto Coffman. Impression: Cardiac arrest. - Released to [employer] Parachutist. Signatures: Tao Pinto RN RN rr5 Eriberto Coffman MD MD 7 Andrea Munoz ad5 Corrections: (The following items were deleted from the chart) 03:11 03:05 The patient presents with decreased responsiveness, [place] [id number] 03:11 03:05 Onset: The symptoms/episode began/occurred just prior to arrival, today, [place] [address] 03:11 03:05 Possible causes: unknown, [place] [address] 03:11 03:05 Associated signs and symptoms: Pertinent positives: syncope, [place] [address] 07:04 03:28 11/04/2020 03:28 Patient pronounced on 11/04/2020 at 02:02 by Eriberto Coffman. ad5 Impression: Cardiac arrest. Released to [employer] Parach[employer]ist. [facility]
[2020-11-04 07:09] VITALS: TEMP 99.2
== END 2020-11-04 07:04 ==
LOC: ER 01:51
DX: I46.9 Cardiac arrest, cause unspecified (principal)
CPT/HCPCS: 31500; 92950; 92960; 96374; 96375; 99285; J0171; J7030